=== PATIENT | female | born 1955 | race Caucasian/White ===

== ENCOUNTER 2022-11-10 09:59 | Observation (INO) | payer MEDICARE ==
[~2022-11-10] VITALS: Ht 162.6 cm; Wt 46.0 kg
[2022-11-10] VITALS (14 sets, daily range): BP systolic 119–147; BP diastolic 64–80
[~2022-11-10 09:59] MED LIST: EFFEXOR75 MG OR; KLONOPIN0.5 MG OR; LIDOCAINE TD; MIDODRINE5 MG OR; PROPO-N/APAP1 TA1 OR; TOPAMAX100 MG OR; TRAZODONE150 MG OR; ULTRAM50 MG OR
[2022-11-10 11:18] LABS: BASO% 0.2 % (0-3); EOS% 1.3 % (0-8); IMMATURE GRANULOCYTES 0.9 % (0.0-5.0); LYMPH% 5.5 % (15-41); MEAN CELL VOLUME 92.3 fL CALC (80.0-100.0); MEAN CORPUSCULAR HGB 28.1 pG CALC (26.0-32.0); MEAN CORPUSCULAR HGB CONC 30.4 g/dL CAL (32.0-36.0); MONO% 8.3 % (2-13); NEUT# 10.54 thou/uL (2.00-7.15); NEUT% 83.8 % (42-76); RED BLOOD COUNT 3.38 mill/uL (4.20-5.60); RED CELL DISTRI WIDTH 16.4 % (11.5-15.5)
[2022-11-10 11:19] LABS: HEMATOCRIT 31.2 % (37.0-47.0); HEMOGLOBIN 9.5 g/dl (12.0-16.0)
[2022-11-10 11:29] LABS: BUN 7 mg/dL (8-23); BUN/CREATININE RATIO 18 (12-20 (CALC)); CARBON DIOXIDE 30 mmol/l (22-30); CREATININE 0.4 mg/dL (0.5-1.0); GFR FOR AFR.AMER. > 60 ML/MIN (>=60 (CALC)); GFR OTHER RACES > 60 ML/MIN (>=60 (CALC)); POTASSIUM 3.4 mmol/l (3.5-5.1); TOTAL PROTEIN 6.4 g/dL (6.3-8.2)
[2022-11-10] MEDS ORDERED: MUCINEX600 MG PO (11:48)
[2022-11-10] MEDS ORDERED: ACIDOPHILU4 PO (11:48)
[2022-11-10] MEDS ORDERED: FOLIC ACID800 MCG PO (11:49)
[2022-11-10] MEDS ORDERED: MORPHINE SUL15 M2 PO (11:50)
[2022-11-10] MEDS ORDERED: PROTONIX40 M2 PO (11:50)
[2022-11-10 11:56] LABS: ANION GAP 11 (6-22 (CALC)); CHLORIDE 94 mmol/l (95-108); SODIUM 132 mmol/l (137-146)
[2022-11-10 11:57] LABS: ALBUMIN 2.7 g/dL (3.2-5.0); ALKALINE PHOSPHATASE 857 u/l (38-126); BILIRUBIN, TOTAL 0.5 mg/dL (0.02-1.3); SGOT/AST 61 u/l (9-36)
[2022-11-10 12:11] LABS: URINE BILIRUBIN - DIPSTICK NEGATIVE (NEGATIVE); URINE BLOOD DIPSTICK NEGATIVE (NEGATIVE); URINE COLOR YELLOW; URINE GLUCOSE - DIPSTICK NEGATIVE (NEGATIVE); URINE KETONE NEGATIVE (NEGATIVE); URINE LEUK ESTERASE NEGATIVE (NEGATIVE); URINE PROTEIN - DIPSTICK NEGATIVE (NEG-TRACE); URINE SPECIFIC GRAVITY <=1.005; URINE UROBILINOGEN - DIPSTICK 0.2 E.U./dL (0.2)
[2022-11-10 12:12] LABS: URINE NITRITE - DIPSTICK NEGATIVE (Negative)
[2022-11-11] VITALS (8 sets, daily range): BP systolic 111–132; BP diastolic 55–77
[2022-11-11 05:08] LABS: BASO% 0.3 % (0-3); EOS% 3.4 % (0-8); HEMATOCRIT 31.3 % (37.0-47.0); HEMOGLOBIN 9.4 g/dl (12.0-16.0); IMMATURE GRANULOCYTES 0.8 % (0.0-5.0); LYMPH% 6.1 % (15-41); MEAN CELL VOLUME 94.8 fL CALC (80.0-100.0); MEAN CORPUSCULAR HGB 28.5 pG CALC (26.0-32.0); MONO% 9.2 % (2-13); NEUT# 7.88 thou/uL (2.00-7.15); NEUT% 80.2 % (42-76); RED BLOOD COUNT 3.3 mill/uL (4.20-5.60); RED CELL DISTRI WIDTH 16.8 % (11.5-15.5)
[2022-11-11 05:33] LABS: ALBUMIN 2.3 g/dL (3.2-5.0); ALKALINE PHOSPHATASE 670 u/l (38-126); ANION GAP 8 (6-22 (CALC)); BILIRUBIN, TOTAL 0.4 mg/dL (0.02-1.3); BUN 4 mg/dL (8-23); BUN/CREATININE RATIO 11 (12-20 (CALC)); CARBON DIOXIDE 31 mmol/l (22-30); CHLORIDE 99 mmol/l (95-108); CREATININE 0.4 mg/dL (0.5-1.0); GFR FOR AFR.AMER. > 60 ML/MIN (>=60 (CALC)); GFR OTHER RACES > 60 ML/MIN (>=60 (CALC)); MAGNESIUM 1.8 mg/dL (1.6-2.3); POTASSIUM 3.2 mmol/l (3.5-5.1); SGOT/AST 53 u/l (9-36); SODIUM 135 mmol/l (137-146); TOTAL PROTEIN 5.6 g/dL (6.3-8.2)
[2022-11-12 05:29] LABS: BASO% 0.4 % (0-3); EOS% 3.7 % (0-8); HEMATOCRIT 29.5 % (37.0-47.0); HEMOGLOBIN 8.9 g/dl (12.0-16.0); IMMATURE GRANULOCYTES 0.7 % (0.0-5.0); LYMPH% 6.4 % (15-41); MEAN CELL VOLUME 93.9 fL CALC (80.0-100.0); MEAN CORPUSCULAR HGB 28.3 pG CALC (26.0-32.0); MEAN CORPUSCULAR HGB CONC 30.2 g/dL CAL (32.0-36.0); MONO% 9.1 % (2-13); NEUT# 8.79 thou/uL (2.00-7.15); NEUT% 79.7 % (42-76); RED BLOOD COUNT 3.14 mill/uL (4.20-5.60); RED CELL DISTRI WIDTH 16.5 % (11.5-15.5)
[2022-11-12 05:38] LABS: ALBUMIN 2.3 g/dL (3.2-5.0); ALKALINE PHOSPHATASE 559 u/l (38-126); ANION GAP 6 (6-22 (CALC)); BILIRUBIN, TOTAL 0.5 mg/dL (0.02-1.3); BUN 5 mg/dL (8-23); BUN/CREATININE RATIO 13 (12-20 (CALC)); CARBON DIOXIDE 31 mmol/l (22-30); CHLORIDE 100 mmol/l (95-108); CREATININE 0.4 mg/dL (0.5-1.0); GFR FOR AFR.AMER. > 60 ML/MIN (>=60 (CALC)); GFR OTHER RACES > 60 ML/MIN (>=60 (CALC)); POTASSIUM 3.5 mmol/l (3.5-5.1); SGOT/AST 35 u/l (9-36); SODIUM 134 mmol/l (137-146); TOTAL PROTEIN 5.6 g/dL (6.3-8.2)
[2022-11-12 05:55] VITALS: BP 114/70
[2022-11-12 07:52] VITALS: BP 126/77
[2022-11-12 12:01] VITALS: BP 117/73
[2022-11-12 15:40] VITALS: BP 104/55
[2022-11-12 21:16] VITALS: BP 113/61
[2022-11-13 01:01] VITALS: BP 121/69
[2022-11-13 04:53] VITALS: BP 123/72
[2022-11-13 05:33] LABS: BASO% 0.3 % (0-3); EOS% 3.4 % (0-8); HEMATOCRIT 29.4 % (37.0-47.0); HEMOGLOBIN 8.9 g/dl (12.0-16.0); IMMATURE GRANULOCYTES 0.7 % (0.0-5.0); LYMPH% 6.7 % (15-41); MEAN CELL VOLUME 93.9 fL CALC (80.0-100.0); MEAN CORPUSCULAR HGB 28.4 pG CALC (26.0-32.0); MEAN CORPUSCULAR HGB CONC 30.3 g/dL CAL (32.0-36.0); MONO% 10.1 % (2-13); NEUT# 8.68 thou/uL (2.00-7.15); NEUT% 78.8 % (42-76); RED BLOOD COUNT 3.13 mill/uL (4.20-5.60); RED CELL DISTRI WIDTH 16.5 % (11.5-15.5)
[2022-11-13 05:38] LABS: ALBUMIN 2.2 g/dL (3.2-5.0); ALKALINE PHOSPHATASE 495 u/l (38-126); ANION GAP 7 (6-22 (CALC)); BILIRUBIN, TOTAL 0.4 mg/dL (0.02-1.3); BUN 5 mg/dL (8-23); BUN/CREATININE RATIO 11 (12-20 (CALC)); CARBON DIOXIDE 30 mmol/l (22-30); CHLORIDE 100 mmol/l (95-108); CREATININE 0.4 mg/dL (0.5-1.0); GFR FOR AFR.AMER. > 60 ML/MIN (>=60 (CALC)); GFR OTHER RACES > 60 ML/MIN (>=60 (CALC)); POTASSIUM 3.1 mmol/l (3.5-5.1); SGOT/AST 36 u/l (9-36); SODIUM 134 mmol/l (137-146); TOTAL PROTEIN 5.6 g/dL (6.3-8.2)
[2022-11-13 08:32] VITALS: BP 113/65
[2022-11-13 13:34] VITALS: BP 106/62
[2022-11-13 15:57] VITALS: BP 114/63
[2022-11-13 19:14] VITALS: BP 113/60
[2022-11-14 04:30] VITALS: BP 129/67
[2022-11-14 05:11] LABS: BASO% 0.2 % (0-3); EOS% 3.9 % (0-8); HEMATOCRIT 30.2 % (37.0-47.0); HEMOGLOBIN 9.3 g/dl (12.0-16.0); IMMATURE GRANULOCYTES 0.7 % (0.0-5.0); MEAN CELL VOLUME 92.9 fL CALC (80.0-100.0); MEAN CORPUSCULAR HGB 28.6 pG CALC (26.0-32.0); MEAN CORPUSCULAR HGB CONC 30.8 g/dL CAL (32.0-36.0); MONO% 7.6 % (2-13); NEUT# 9.5 thou/uL (2.00-7.15); NEUT% 79.6 % (42-76); RED BLOOD COUNT 3.25 mill/uL (4.20-5.60); RED CELL DISTRI WIDTH 16.5 % (11.5-15.5)
[2022-11-14 05:19] LABS: ALBUMIN 2.3 g/dL (3.2-5.0); ALKALINE PHOSPHATASE 495 u/l (38-126); ANION GAP 7 (6-22 (CALC)); BILIRUBIN, TOTAL 0.4 mg/dL (0.02-1.3); BUN 5 mg/dL (8-23); BUN/CREATININE RATIO 13 (12-20 (CALC)); CARBON DIOXIDE 30 mmol/l (22-30); CHLORIDE 101 mmol/l (95-108); CREATININE 0.4 mg/dL (0.5-1.0); GFR FOR AFR.AMER. > 60 ML/MIN (>=60 (CALC)); GFR OTHER RACES > 60 ML/MIN (>=60 (CALC)); POTASSIUM 3.3 mmol/l (3.5-5.1); SGOT/AST 52 u/l (9-36); SODIUM 134 mmol/l (137-146); TOTAL PROTEIN 5.8 g/dL (6.3-8.2)
[2022-11-14 06:57] VITALS: BP 118/74
[2022-11-14 10:00] VITALS: BP 113/61
[2022-11-14 15:57] VITALS: BP 124/61
[2022-11-14 19:14] VITALS: BP 97/54
[2022-11-15] VITALS (7 sets, daily range): BP systolic 105–130; BP diastolic 57–79
[2022-11-15 06:00] LABS: BASO% 0.2 % (0-3); EOS% 3.9 % (0-8); HEMATOCRIT 30.6 % (37.0-47.0); HEMOGLOBIN 9.2 g/dl (12.0-16.0); IMMATURE GRANULOCYTES 0.9 % (0.0-5.0); LYMPH% 7.2 % (15-41); MEAN CELL VOLUME 94.4 fL CALC (80.0-100.0); MEAN CORPUSCULAR HGB 28.4 pG CALC (26.0-32.0); MEAN CORPUSCULAR HGB CONC 30.1 g/dL CAL (32.0-36.0); MONO% 8.7 % (2-13); NEUT# 9.13 thou/uL (2.00-7.15); NEUT% 79.1 % (42-76); RED BLOOD COUNT 3.24 mill/uL (4.20-5.60); RED CELL DISTRI WIDTH 16.5 % (11.5-15.5)
[2022-11-15 06:19] LABS: ALBUMIN 2.3 g/dL (3.2-5.0); ALKALINE PHOSPHATASE 481 u/l (38-126); ANION GAP 8 (6-22 (CALC)); BILIRUBIN, TOTAL 0.4 mg/dL (0.02-1.3); BUN 6 mg/dL (8-23); BUN/CREATININE RATIO 13 (12-20 (CALC)); CARBON DIOXIDE 31 mmol/l (22-30); CHLORIDE 101 mmol/l (95-108); CREATININE 0.4 mg/dL (0.5-1.0); GFR FOR AFR.AMER. > 60 ML/MIN (>=60 (CALC)); GFR OTHER RACES > 60 ML/MIN (>=60 (CALC)); POTASSIUM 3.6 mmol/l (3.5-5.1); SGOT/AST 55 u/l (9-36); SODIUM 136 mmol/l (137-146); TOTAL PROTEIN 5.6 g/dL (6.3-8.2)
[2022-11-15 06:20] LABS: MAGNESIUM 2.3 mg/dL (1.6-2.3)
[2022-11-16] VITALS (10 sets, daily range): BP systolic 105–170; BP diastolic 57–87
[2022-11-17 00:29] VITALS: BP 122/63
[2022-11-17 04:07] VITALS: BP 132/70
[2022-11-17 05:43] LABS: BASO% 0.2 % (0-3); EOS% 3.6 % (0-8); HEMATOCRIT 28.5 % (37.0-47.0); HEMOGLOBIN 8.7 g/dl (12.0-16.0); IMMATURE GRANULOCYTES 0.6 % (0.0-5.0); LYMPH% 8.4 % (15-41); MEAN CELL VOLUME 93.1 fL CALC (80.0-100.0); MEAN CORPUSCULAR HGB 28.4 pG CALC (26.0-32.0); MEAN CORPUSCULAR HGB CONC 30.5 g/dL CAL (32.0-36.0); MONO% 8.5 % (2-13); NEUT# 8.1 thou/uL (2.00-7.15); NEUT% 78.7 % (42-76); RED BLOOD COUNT 3.06 mill/uL (4.20-5.60); RED CELL DISTRI WIDTH 16.3 % (11.5-15.5)
[2022-11-17 05:54] LABS: ALBUMIN 2.1 g/dL (3.2-5.0); ALKALINE PHOSPHATASE 500 u/l (38-126); ANION GAP 6 (6-22 (CALC)); BILIRUBIN, TOTAL 0.4 mg/dL (0.02-1.3); BUN 6 mg/dL (8-23); BUN/CREATININE RATIO 14 (12-20 (CALC)); CARBON DIOXIDE 32 mmol/l (22-30); CHLORIDE 100 mmol/l (95-108); CREATININE 0.4 mg/dL (0.5-1.0); GFR FOR AFR.AMER. > 60 ML/MIN (>=60 (CALC)); GFR OTHER RACES > 60 ML/MIN (>=60 (CALC)); MAGNESIUM 1.9 mg/dL (1.6-2.3); SGOT/AST 61 u/l (9-36); SODIUM 135 mmol/l (137-146); TOTAL PROTEIN 5.3 g/dL (6.3-8.2)
[2022-11-17 05:59] LABS: POTASSIUM 2.8 mmol/l (3.5-5.1)
[2022-11-17 06:50] VITALS: BP 120/67
[2022-11-17] MEDS ORDERED: MORPHINE SUL15 M2 PO (11:00)
[2022-11-17 11:15] VITALS: BP 109/66
== END 2022-11-17 14:24 ==
LOC: ED 09:59 → ED-I 13:24 → ED 13:33 → MS2 13:34
PROVIDERS: Family Medicine; Internal Medicine; Nurse Practitioner Family; ADMIT Internal Medicine; ATTEND Internal Medicine
DX: R62.7 Adult failure to thrive (principal); E46 Unspecified protein-calorie malnutrition; E86.0 Dehydration; C34.90 Malignant neoplasm of unspecified part of unspecified bronchus or lung; C79.51 Secondary malignant neoplasm of bone; C79.31 Secondary malignant neoplasm of brain; M84.422D Pathological fracture, left humerus, subsequent encounter for fracture with routine healing; G89.29 Other chronic pain; I95.9 Hypotension, unspecified; Z68.1 Body mass index [BMI] 19.9 or less, adult; Z98.890 Other specified postprocedural states; Z87.891 Personal history of nicotine dependence; Z79.891 Long term (current) use of opiate analgesic; Z20.822 Contact with and (suspected) exposure to COVID-19
CPT/HCPCS: J3475

== ENCOUNTER 2023-01-10 08:19 | Emergency (ER) | payer MEDICARE ==
[2023-01-10] VITALS (11 sets, daily range): BP systolic 70–107; BP diastolic 47–65
[~2023-01-10] VITALS: Ht 162.6 cm; Wt 40.5 kg
[~2023-01-10 08:19] MED LIST changes: +ACIDOPHILU4 PO; +FOLIC ACID800 MCG PO; +MORPHINE SUL15 M2 PO; +MUCINEX600 MG PO; +PROTONIX40 M2 PO
[2023-01-10] MEDS ORDERED: FERROUS SULFAT325 MG PO (08:52)
[2023-01-10] MEDS ORDERED: MAGNESIUM OXID400 M1 (08:54)
[2023-01-10] MEDS ORDERED: KLOR-CON/EF25 MEQ PO (08:58)
[2023-01-10 09:11] LABS: BASO% 0.1 % (0-3); EOS% 0.4 % (0-8); HEMOGLOBIN 9.8 g/dl (12.0-16.0); IMMATURE GRANULOCYTES 0.2 % (0.0-5.0); LYMPH% 2.2 % (15-41); MEAN CELL VOLUME 91.7 fL CALC (80.0-100.0); MEAN CORPUSCULAR HGB CONC 31.6 g/dL CAL (32.0-36.0); MONO% 1.9 % (2-13); NEUT# 15.53 thou/uL (2.00-7.15); NEUT% 95.2 % (42-76); RED BLOOD COUNT 3.38 mill/uL (4.20-5.60); RED CELL DISTRI WIDTH 14.4 % (11.5-15.5)
[2023-01-10 09:31] LABS: ALBUMIN 2.4 g/dL (3.2-5.0); ALKALINE PHOSPHATASE 831 u/l (38-126); BUN 11 mg/dL (8-23); BUN/CREATININE RATIO 25 (12-20 (CALC)); CHLORIDE 95 mmol/l (95-108); CREATININE 0.4 mg/dL (0.5-1.0); GFR FOR AFR.AMER. > 60 ML/MIN (>=60 (CALC)); GFR OTHER RACES > 60 ML/MIN (>=60 (CALC)); INTERNATIONAL NORMALIZED RATIO 1.7 RATIO (0.7-1.3); SGOT/AST 52 u/l (9-36); SODIUM 129 mmol/l (137-146); TOTAL PROTEIN 5.7 g/dL (6.3-8.2)
[2023-01-10 09:33] LABS: ANION GAP 13 (6-22 (CALC)); BILIRUBIN, TOTAL 0.5 mg/dL (0.02-1.3); CARBON DIOXIDE 25 mmol/l (22-30); POTASSIUM 3.5 mmol/l (3.5-5.1)
[2023-01-10] MEDS ORDERED: ZPAK PO (10:14)
[2023-01-10] MEDS ORDERED: AMOX/K CLAV875 M1 PO (10:14)
== END 2023-01-10 10:59 | disposition home or self-care (01) ==
LOC: ED 08:19
PROVIDERS: Family Medicine
DX: R04.2 Hemoptysis (principal); J06.9 Acute upper respiratory infection, unspecified; C34.92 Malignant neoplasm of unspecified part of left bronchus or lung; C34.91 Malignant neoplasm of unspecified part of right bronchus or lung; Z20.822 Contact with and (suspected) exposure to COVID-19

== ENCOUNTER 2023-01-23 23:34 | Emergency (ER) | payer MEDICARE ==
[~2023-01-23] VITALS: Ht 162.6 cm; Wt 43.0 kg
[~2023-01-23 23:34] MED LIST changes: +AMOX/K CLAV875 M1 PO; +FERROUS SULFAT325 MG PO; +KLOR-CON/EF25 MEQ PO; +MAGNESIUM OXID400 M1; +ZPAK PO
[2023-01-23 23:51] VITALS: BP 83/61
[2023-01-23 23:53] VITALS: BP 79/50
[2023-01-24] VITALS (31 sets, daily range): BP systolic 76–118; BP diastolic 50–88
[2023-01-24 00:46] LABS: BASO% 0.1 % (0-3); EOS% 1.2 % (0-8); HEMATOCRIT 34.1 % (37.0-47.0); HEMOGLOBIN 10.5 g/dl (12.0-16.0); IMMATURE GRANULOCYTES 3.4 % (0.0-5.0); LYMPH% 4.9 % (15-41); MEAN CELL VOLUME 93.4 fL CALC (80.0-100.0); MEAN CORPUSCULAR HGB 28.8 pG CALC (26.0-32.0); MEAN CORPUSCULAR HGB CONC 30.8 g/dL CAL (32.0-36.0); MONO% 8.8 % (2-13); NEUT# 14.86 thou/uL (2.00-7.15); NEUT% 81.6 % (42-76); RED BLOOD COUNT 3.65 mill/uL (4.20-5.60); RED CELL DISTRI WIDTH 15.2 % (11.5-15.5)
[2023-01-24 00:55] LABS: ALBUMIN 2.6 g/dL (3.2-5.0); ALKALINE PHOSPHATASE 1180 u/l (38-126); AMYLASE 32 u/l (30-110); ANION GAP 13 (6-22 (CALC)); BILIRUBIN, TOTAL 0.5 mg/dL (0.02-1.3); BUN 11 mg/dL (8-23); BUN/CREATININE RATIO 22 (12-20 (CALC)); CARBON DIOXIDE 23 mmol/l (22-30); CHLORIDE 96 mmol/l (95-108); CREATININE 0.5 mg/dL (0.5-1.0); GFR FOR AFR.AMER. > 60 ML/MIN (>=60 (CALC)); GFR OTHER RACES > 60 ML/MIN (>=60 (CALC)); LIPASE 10 u/l (23-300); SGOT/AST 90 u/l (9-36); SODIUM 127 mmol/l (137-146); TOTAL PROTEIN 6.3 g/dL (6.3-8.2)
[2023-01-24 01:03] LABS: INTERNATIONAL NORMALIZED RATIO 1.6 RATIO (0.7-1.3)
== END 2023-01-24 04:48 ==
LOC: ED 23:34
PROVIDERS: Emergency Medicine
PROC: 0T9B70Z Drainage of Bladder with Drainage Device, Via Natural or Artificial Opening (ICD-10-PCS; principal; 2023-01-24)
PROC: 0BH17EZ Insertion of Endotracheal Airway into Trachea, Via Natural or Artificial Opening (ICD-10-PCS; 2023-01-24)
PROC: 5A1935Z Respiratory Ventilation, Less than 24 Consecutive Hours (ICD-10-PCS; 2023-01-24)
DX: J96.00 Acute respiratory failure, unspecified whether with hypoxia or hypercapnia (principal); R04.2 Hemoptysis; I95.9 Hypotension, unspecified; R79.89 Other specified abnormal findings of blood chemistry; E87.4 Mixed disorder of acid-base balance; C34.91 Malignant neoplasm of unspecified part of right bronchus or lung; C79.51 Secondary malignant neoplasm of bone; C79.31 Secondary malignant neoplasm of brain; Z79.899 Other long term (current) drug therapy; Z20.822 Contact with and (suspected) exposure to COVID-19
CPT/HCPCS: S0164